=== PATIENT | male | born 1975 | race African-American/Black ===

== ENCOUNTER 2019-08-31 15:21 | Emergency (ER) | payer BC, OTHER ==
[2019-08-31 15:54] VITALS: BP 158/81
--- NOTE | 2019-08-31 16:23 | ER Document Report ---
ED Medical Screen (RME) - General Chief Complaint: Skin Problem Stated Complaint: POSSIBLE SHINGLES ON FOREHEAD Time Seen by Provider: 08/31/19 16:17 Mode of Arrival: Ambulatory Information source: Patient Notes: This 44-year-old male who was diagnosed with shingles however it is moving periorbitally around his left eye - Related Data Allergies/Adverse Reactions: No Known Allergies Allergy (Unverified 08/31/19 16:20) Home Medications: valacylorvir Past Medical History - Social History Chew tobacco use (# tins/day): No Frequency of alcohol use: None Drug Abuse: Marijuana Physical Exam - Vital signs Vitals: Temp Pulse Resp BP Pulse Ox 98.5 F 51 L 20 158/81 H 98 08/31/19 15:51 08/31/19 15:51 08/31/19 15:51 08/31/19 15:51 08/31/19 15:51 Course - Vital Signs Vital signs: Temp Pulse Resp BP Pulse Ox 98.5 F 51 L 20 158/81 H 98 08/31/19 16:17 08/31/19 15:51 08/31/19 15:51 08/31/19 15:51 08/31/19 15:51
[2019-08-31 16:54] LABS: ABSOLUTE EOSINOPHILS # (AUTO) 0.1 10^3/uL (0.0-0.6); ABSOLUTE LYMPHOCYTES (AUTO) 1.6 10^3/uL (0.5-4.7); ABSOLUTE MONOCYTES (AUTO) 0.7 10^3/uL (0.1-1.4); ABSOLUTE NEUT (AUTO) 3.7 10^3/uL (1.7-8.2); BASOPHILS % (AUTO) 0.7 % (0-2); HEMATOCRIT 43.4 % (37.9-51.0); HEMOGLOBIN 14.8 g/dL (13.5-17.0); MEAN CORPUSCULAR HEMOGLOBIN 33.1 pg (27.0-33.4); MEAN CORPUSCULAR VOLUME 97 fl (80-97); MONOCYTES % (AUTO) 12.1 % (3-13); PLATELET COUNT 262 10^3/uL (150-450); RED BLOOD COUNT 4.47 10^6/uL (4.35-5.55); RED CELL DISTRIBUTION WIDTH 12.9 % (11.5-14.0); SEGMENTED NEUTROPHILS % (AUTO) 60.2 % (42-78); TOTAL CELLS COUNTED % (AUTO) 100 %; WHITE BLOOD COUNT 6.1 10^3/uL (4.0-10.5)
--- NOTE | 2019-08-31 17:08 | RADIOLOGY REPORT (SQ) ---
EXAM DESCRIPTION: CT ORBIT/SELLA WITHOUT IMAGES COMPLETED DATE/TIME: 08/31/2019 4:58 pm REASON FOR STUDY: periorbital shingles COMPARISON: None. TECHNIQUE: Noncontrasted images through the orbits windowed for bone and soft tissue. Additional co aide and sagittal reconstructed images reviewed. All images stored on PACS. All CT scanners at this facility use dose modulation, iterative reconstruction, and/or weight based d osing when appropriate to reduce radiation dose to as low as reasonably achievable (ALARA). [facility]: Dose Right [facility]: CareDose [facility]: Dose Right [facility]: Teradose 4D [facility]: Smart [employer] RADIATION DOSE: CT Rad equipment meets quality standard of care and radiation dose reduction techniq ues were employed. CTDIvol: 30.4 mGy. DLP: 585 mGy-cm. mGy. LIMITATIONS: None. FINDINGS: FACIAL BONES: No fracture or bone lesion. ORBITS: Intact. No fracture. Symmetric intact globes. Preserved intra and extraconal fat normal ex traocular muscles. . PARANASAL SINUSES: Clear. No significant mucosal thickening, mass or fluid. No nasal polyps. Maxilla ry sinus outlets are patent. SOFT TISSUES: Moderate left periorbital/supraorbital soft tissue swelling. INFERIOR BRAIN: Limited view. No acute findings. OTHER: No other significant finding. IMPRESSION: Moderate left periorbital/supraorbital soft tissue swelling. No identifiable acute orbi abdi findings. TECHNICAL DOCUMENTATION: JOB ID: [id number] Quality ID # [id number]: Final reports with documentation of one or more dose reduction techniques (e.g., Au tomated exposure control, adjustment of the mA and/or kV according to patient size, use of iterative reconstruction technique) 2010 [employer]- All Rights Reserved Reading location - IP/workstation name: [email or web address]
[2019-08-31 17:12] LABS: ALBUMIN 4.8 g/dL (3.5-5.0); ALKALINE PHOSPHATASE 76 U/L (38-126); ANION GAP 6 (5-19); ASPARTATE AMINO TRANSFERASE 33 U/L (17-59); BILIRUBIN,TOTAL 0.6 mg/dL (0.2-1.3); BLOOD UREA NITROGEN 10 mg/dL (7-20); CALCIUM 9.9 mg/dL (8.4-10.2); CARBON DIOXIDE 28 mmol/L (22-30); CHLORIDE 104 mmol/L (98-107); GLUCOSE 106 mg/dL (75-110)
[2019-08-31] MEDS ORDERED: DEXAMETHASONE SOD PHOS INJ 10 MG/1 ML VIAL IM ONE (17:40)
[2019-08-31] MEDS ORDERED: METHYLPREDNISOLONE ACETATE INJ 40 MG/1 ML ML IM ONE (17:40)
--- NOTE | 2019-08-31 17:47 | ER Document Report ---
HPI - HPI Patient complains to provider of: Shingles Time Seen by Provider: 08/31/19 16:17 Pain Level: 4 Context: This a 44-year-old male who presents emergency room today with shingles nearly periorbital to the left eye Associated Symptoms: None Exacerbated by: Denies Relieved by: Denies Similar symptoms previously: No Recently seen / treated by doctor: No Past Medical History - General Information source: Patient - Social History Smoking Status: Never Smoker Chew tobacco use (# tins/day): No Frequency of alcohol use: None Drug Abuse: Marijuana Family History: None Vertical Provider Document - CONSTITUTIONAL Agree With Documented VS: Yes - INFECTION CONTROL TRAVEL OUTSIDE OF THE [place] IN LAST 30 DAYS: No - HEENT HEENT: Atraumatic, Conjuctival Injection, Normocephalic, PERRLA Notes: Extraocular motion is intact. The eye was stained with fluorescein with no dendritic lesions and no herpetic uptake. - CARDIOVASCULAR Cardiovascular: Regular Rate, Regular Rhythm - GI/ABDOMEN Gastrointestinal: Abdomen Soft, Abdomen Non-Tender - REPRODUCTIVE Male Genitalia: Normal Inspection - BACK Back: Normal Inspection - MUSCULOSKELETAL/EXTREMETIES Musculoskeletal/Extremeties: MAEW - NEURO Level of Consciousness: Awake, Alert, Appropriate - DERM Integumentary: Warm, Dry Course - Re-evaluation Re-evalutation: 08/31/19 17:42 Tablet stable pleurisy with no dendritic lesions no herpetic uptake extraocular motion was intact pupils equally round react light accommodation CAT scan was performed out of an abundance of caution based on the amount of swelling as well as a CBC drawn CBC was within normal limits please see radiology report for radiologist findings. - Vital Signs Vital signs: Temp Pulse Resp BP Pulse Ox 98.5 F 51 L 20 158/81 H 98 08/31/19 16:17 08/31/19 15:51 08/31/19 15:51 08/31/19 15:51 08/31/19 15:51 - Laboratory Result Diagrams: 08/31/19 16:30 08/31/19 16:30 Laboratory results interpreted by me: 08/31/19 17:42 Labs- All tests 24 hr 08/31/19 08/31/19 16:30 16:30 WBC 6.1 RBC 4.47 Hgb 14.8 Hct 43.4 MCV 97 MCH 33.1 MCHC 34.0 RDW 12.9 Plt Count 262 Lymph % (Auto) 26.0 [place] % (Auto) 12.1 Eos % (Auto) 1.0 Baso % (Auto) 0.7 Absolute Neuts (auto) 3.7 Absolute Lymphs (auto) 1.6 Absolute Monos (auto) 0.7 Absolute Eos (auto) 0.1 Absolute Basos (auto) 0.0 Seg Neutrophils % 60.2 Sodium 137.6 Potassium 5.0 Chloride 104 Carbon Dioxide 28 Anion Gap 6 BUN 10 Creatinine 0.96 Est GFR ( Amer) > 60 Est GFR (MDRD) Non-Af > 60 Glucose 106 Calcium 9.9 Total Bilirubin 0.6 Direct Bilirubin 0.0 Neonat Total Bilirubin Not Reportable Neonat Direct Bilirubin Not Reportable Neonat Indirect Bili Not Reportable AST 33 ALT 26 Alkaline Phosphatase 76 Total Protein 8.0 Albumin 4.8 - Diagnostic Test Radiology results interpreted by me: 08/31/19 17:[address] 08/31/19 16:20 IMPRESSION: Moderate left periorbital/supraorbital soft tissue swelling. No identifiable acute orbital findings. 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 Must take steroids as prescribed. Patient was provided gabapentin. Must follow-up with PMD for an ophthalmology consult within 2 to 3 days. Must return to the emergency room immediately for absolutely any change or worsening of condition. Prescriptions: Prednisone [Deltasone 20 mg Tablet] 3 tab PO DAILY 5 Days tablet Gabapentin [Neurontin 100 mg Capsule] 100 mg PO Q12 30 Days #60 capsule
== END 2019-08-31 17:54 | disposition home or self-care (01) ==
LOC: ER 15:21
DX: B02.30 Zoster ocular disease, unspecified (principal)
CPT/HCPCS: 99284; 96372; 36415; 85025; 80053; 70480; J1030; J1100